=== PATIENT | female | born 1965 | race Caucasian/White ===

== ENCOUNTER 2018-04-07 15:45 | Observation (INO) | payer BC, MEDICAID, SELFPAY ==
[2018-04-07] VITALS (8 sets, daily range): BP systolic 127–147; BP diastolic 61–93; PULSE 78–106; RESP 16–109; TEMP 37–37.3; O2SAT 97–99; BMI 31.8; BMI 32.8
--- NOTE | 2018-04-07 15:53 | EKG12_ITS ---
Test Reason : CP Blood Pressure : / mmHG Vent. Rate : 094 BPM Atrial Rate : 094 BPM P-R Int : 128 ms QRS Dur : 084 ms QT Int : 350 ms P-R-T Axes : 016 038 018 degrees QTc Int : 437 ms Normal sinus rhythm Nonspecific ST abnormality Abnormal ECG Confirmed by BEN HAMILTON, BANDAR ([id number]), manager editorial GARY BALBUENA ([id number] on 04/10/2018 1:27:33 PM Referred By: MARY CARMEN Confirmed By:BANDAR CONTRERAS MD
--- NOTE | 2018-04-07 15:53 | RAD_ITS ---
STUDY: X-RAY CHEST REASON FOR EXAM: Female, 52 years old. Chest pain with exertion TECHNIQUE: Single AP portable view of the chest. COMPARISON: 2010 FINDINGS: EKG leads overlie the chest The lungs are clear and expanded. There is no demonstrated pleural abnormality. Normal size heart. Normal mediastinum and debbie. Normal visualized pulmonary arteries. Normal visualized aortic arch and descending thoracic aorta. Normal visualized thoracic spine. Normal visualized ribs, clavicles, and shoulders. There is no demonstrated abnormality of the visualized soft tissue structures of the upper abdomen. RAD/Chest 1 View (Portable) IMPRESSION: Normal x-ray examination of the chest. Electronically Signed: Santhosh Monae MD at 16:25 EDT , Service support ,
[2018-04-07] MEDS: Aspirin 81 MG TAB.CHEW 324 MG PO (15:59)
[2018-04-07 16:18] LABS: Absolute Lymphocyte Count 1.81 X10^3/ul (0.83-4.51); Absolute Neutrophil Count 8.1 X10^3/uL (2.0-7.7); Basophil# 0.07 X10^3/uL; Basophil% 0.6 % (0-1); Eosinophil# 0.17 X10^3/uL; Eosinophils% 1.5 % (0-5); Hematocrit 39.8 % (37-47); Hemoglobin 13.6 g/dl (12.0-15.0); Lymphocyte # 1.81 X10^3/ul (4.0); Lymphocyte % 16.2 % (19-41); Mean Corp Hgb Conc 34.2 g/gl (32-36); Mean Corpuscular Hgb 30.1 pg (27.0-32.0); Mean Corpuscular Volume 88.1 fL (81-99); Mean Platelet Vol. 10.7 fl (6.2-12.0); Monocyte# 1.02 X10^3/uL; Monocyte% 9.1 % (0-10); Neutrophil # 8.09 X10^3/uL (2.7-7.7); Neutrophil % 72.4 % (47-70); Platelet Count 330 K/mm3 (150-450); RBC Distribution Width CV 13.7 % (11.6-14.6); RBC Distribution Width SD 43.7 fl (35.1-43.9); Red Blood Count 4.52 M/mm3 (4.2-5.4); White Blood Count 11.2 K/mm3 (4.4-11.0)
[2018-04-07 16:20] LABS: POSITIVE COUNT NO; POSITIVE DIFFERENTIAL NO; POSITIVE MORPHOLOGY NO
--- NOTE | 2018-04-07 16:20 | ED.DCSUM_ITS ---
- ER Visit Summary Date of Service: 04/07/18 Chief Complaint: Intermittent central to left parasternal indigestion with radiation to the neck, associated with dyspnea and diaphoresis. History of Present Illness: The patient is a 52 F who presents because of indigestion that at times radiates to the anterior neck. At times to both shoulders and at times to either the right or left shoulder. This occurs predominantly at night. She states she has had trouble sleeping last 1-2 months. She does become sweaty and is nauseous. She also reports dyspnea at times. She has no history of reflux, hiatal hernia, gastritis, peptic ulcer disease. Patient reports recently she has been exercising to lose weight. She does not have any symptoms per se with stress/activity. She denies any leg pain, swelling or discoloration. She denies history of PE or DVT or any risk factors. She denies symptoms of claudication. Strong family history for coronary disease at a young age. She denies hematemesis, melena hematochezia. She has not noted any relationship to when she eats or what she eats. She has not noted any relationship to change in position. Physical Examination: Patient pleasant middle-aged woman who appears in no distress. She is drinking water as I entered the room. Head is atraumatic normocephalic. Pupils are equal round reactive. Extraocular muscles are intact. TMs are pearly white with landmarks noted. Nares patent with no drainage. Posterior pharynx without erythema or exudate. Uvula is midline. There is no dysphonia or dysphasia. Trachea is midline. There is no stridor with auscultation of the neck. Heart is regular without murmur, gallop or rub. S1 and S2 are normal. Lungs are clear to auscultation with good movement of air bilaterally. There is no reproducible chest pain. Abdomen is soft and nontender. There is no guarding or peritoneal findings. There is no palpable pulsatile mass. There is no abdominal bruit. Jacobo sign is negative. Negative Rovsing sign. There is no evidence of inguinal or umbilical hernia. There is no asymmetry, swelling, discoloration, leg vein distention, palpable cords or tenderness along the distribution of the deep venous system. Neuro exam is nonfocal. Test Results: EKG revealed a sinus rhythm with a rate of [address]-T wave changes. The no ossific ST-T wave changes were noted January 30, 2011. White count is slightly low at 11.2. Electro panels unremarkable. Troponin is less than 0.015 and TSH is 1.18. Portable chest x-ray reveals a normal cardiac silhouette and the mediastinum. Lung parenchyma is normal. Osseous structures are unremarkable. There is no evidence of hiatal hernia. Emergency Department Course and Treatment: To evaluate patient's symptoms and concerns and EKG, chest x-ray and appropriate blood work was obtained. She reports history of hyperthyroidism. And since she is tachycardic a TSH was obtained for screening purposes. Treatment Plan: Parts of patient's description of pain is concerning. She does have multiple risk factors. Patient's heart score is 5. Moderate risk with a 1216 0.6% 4 major adverse cardiac events. Therefore the hospitalist was paged for further testing Disposition: 23 hour observation Impression: 1. Midsternal chest discomfort 2. History of hypertension 3. History hypercholesterolemia 4. History of hypothyroidism 5. Significant family history for coronary disease This note was generated with [employer] dictation software. It may contain incorrect words, spelling, and punctuation that were not noted in review of the chart prior to signing ED Disposition - Plan for ED Patient: Chief Complaint: Chest Pain Referrals: River Myers MD [Primary Care Provider] -
[2018-04-07 16:39] LABS: Anion Gap 8 (5-15); BUN 10 mg/dL (7-18); BUN/Creat Ratio 10.4 RATIO (10-20); Calcium,Total 9.1 mg/dL (8.5-10.1); Chloride 106 mmol/L (98-107); Creatinine, Serum 0.96 mg/dL (0.55-1.02); EST Glomerular Filtration Rate 65 mL/min (>60); Est Glom Filt Rate - Afr Amer 78 mL/min (>60); Estimated Creatinine Clearance 57.35 ml/min; Glucose 102 mg/dL (74-106); Potassium 3.5 mmol/L (3.5-5.1); Sodium Level 141 mmol/L (136-145); Thyroid Stim Hormone (TSH) 1.18 uIU/mL (0.358-3.74)
--- NOTE | 2018-04-07 18:38 | PCM.HP.STD ---
Problem List (1) Chest pain Status: Acute History of Present Illness Date of Admission: 04/07/18 Chief Complaint: chest and neck pain. The patient is a 52 year old F presents with chest and neck pain. Patient has had chest pain for decades that is, going to the patient, related with her indigestion. That is normal pain that she today, however, patient experienced some fullness in her neck. Patient was concerned about her thyroid acting up and contacted her primary care doctor who directed her to the emergency room. Emergency room patient's workup was unremarkable. Patient did have a thyroid cyst study with TSH which was normal. Patient be admitted for further chest pain evaluation. 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 Denies: Edema Respiratory: Denies: Cough, Shortness of breath at rest, Sputum production Gastrointestinal: Reports: - - indigestion and belching and flatus. Denies: Abdominal Pain, Nausea, Vomiting Genitourinary: Denies: Dysuria Musculoskeletal: Denies: Joint Pain, Joint Tenderness Skin: Denies: Rash, Wounds Neurological: Denies: Numbness, Tingling, Focal weakness Psychiatric: Reports: Anxiety. Denies: Depression Hematologic/ Lymphatic: Denies: Easy Bruising, Easy Bleeding, Hx of blood clot Comment: All review of systems are negative except as mentioned in the history of present illness and the other review of systems. VTE Information - Inpt Only VTE Present on Admission: No VTE Mechan Device Prophylaxis: None VTE Pharm Prophylaxis ordered?: Yes Patient Problems: Active and Suspected Problems Chest pain (Acute) - Physical Exam General: Alert, Cooperative, No apparent distress HEENT: Atraumatic, Normocephalic Oral: Moist Mucosa, No Gingival or Mucosal Lesions/ Ulcerations Neck: No Nodes, Thyroid Normal Size and Texture Lungs: Clear to auscultation, Normal air movement, No rhonchi, No wheeze Cardiovascular: Regular rate, Regular Rhythm, Normal S1, Normal S2, No murmurs Abdomen: Bowel Sounds Present, Soft, Non Tender, Non-Distended, No Hepato-splenomegaly Extremities: No edema, No Calf Tenderness Skin: No rashes, No breakdown Psych/Mental Status: Normal Affect, Appropriate Vital Signs Temp Pulse Resp BP Pulse Ox 37.3 C 90 18 135/93 H 98 04/07/18 15:48 04/07/18 17:06 04/07/18 17:06 04/07/18 17:06 04/07/18 17:06 Oxygen Delivery Method Room Air Weight: 81.647 kg Body Mass Index (BMI) 31.8 Laboratory Tests Past 24 Hrs 04/07/18 04/07/18 16:00 16:00 WBC 11.2 H RBC 4.52 Hgb 13.6 Hct 39.8 MCV 88.1 MCH 30.1 MCHC 34.2 RDW 13.7 RDW Differential 43.7 Plt Count 330 MPV 10.7 Immature Gran % (Auto) 0.200 Neut % (Auto) 72.4 H Lymph % (Auto) 16.2 L [place] % (Auto) 9.1 Eos % (Auto) 1.5 Baso % (Auto) 0.6 Absolute Neuts (auto) 8.1 H Absolute Lymphs (auto) 1.81 Total Counted Not Reportable Sodium 141 Potassium 3.5 Chloride 106 Carbon Dioxide 27.0 Anion Gap 8 BUN 10 Creatinine 0.96 Estim Creat Clear Calc 57.35 Est GFR (MDRD) Af Amer 78 Est GFR (MDRD) Non-Af 65 BUN/Creatinine Ratio 10.4 Glucose 102 Calcium 9.1 Troponin I < 0.015 TSH 1.18 EKG reviewed and did not show any acute changes. Assessment/Plan All Active Problems Chest pain (Acute) 1. Chest pain Chest pain is actually a chronic process but what brought patient to the emergency room was his neck pain which seems unrelated to the chest pain. Patient has chronic chest pain that she attributes to indigestion. Patient has a calculated heart score of 3 for just risk factors. Patient's symptoms are not suspicious. She received aspirin in the in the emergency room and will continue Patient prefers to do a treadmill stress test despite having plantar fasciitis. Patient feels confident that she will be able to go long enough to mount a proper heart rate with treadmill 2. DVT prophylaxis with Lovenox Code Visit OBSV E&M: 12030 Initial observation care L2
--- NOTE | 2018-04-07 18:45 | HP.PCM_ITS ---
Problem List (1) Chest pain Status: Acute History of Present Illness Date of Admission: 04/07/18 Chief Complaint: chest and neck pain. The patient is a 52 year old F presents with chest and neck pain. Patient has had chest pain for decades that is, going to the patient, related with her indigestion. That is normal pain that she today, however, patient experienced some fullness in her neck. Patient was concerned about her thyroid acting up and contacted her primary care doctor who directed her to the emergency room. Emergency room patient's workup was unremarkable. Patient did have a thyroid cyst study with TSH which was normal. Patient be admitted for further chest pain evaluation. 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 Denies: Edema Respiratory: Denies: Cough, Shortness of breath at rest, Sputum production Gastrointestinal: Reports: - - indigestion and belching and flatus. Denies: Abdominal Pain, Nausea, Vomiting Genitourinary: Denies: Dysuria Musculoskeletal: Denies: Joint Pain, Joint Tenderness Skin: Denies: Rash, Wounds Neurological: Denies: Numbness, Tingling, Focal weakness Psychiatric: Reports: Anxiety. Denies: Depression Hematologic/ Lymphatic: Denies: Easy Bruising, Easy Bleeding, Hx of blood clot Comment: All review of systems are negative except as mentioned in the history of present illness and the other review of systems. VTE Information - Inpt Only VTE Present on Admission: No VTE Mechan Device Prophylaxis: None VTE Pharm Prophylaxis ordered?: Yes Patient Problems: Active and Suspected Problems Chest pain (Acute) - Physical Exam General: Alert, Cooperative, No apparent distress HEENT: Atraumatic, Normocephalic Oral: Moist Mucosa, No Gingival or Mucosal Lesions/ Ulcerations Neck: No Nodes, Thyroid Normal Size and Texture Lungs: Clear to auscultation, Normal air movement, No rhonchi, No wheeze Cardiovascular: Regular rate, Regular Rhythm, Normal S1, Normal S2, No murmurs Abdomen: Bowel Sounds Present, Soft, Non Tender, Non-Distended, No Hepato- splenomegaly Extremities: No edema, No Calf Tenderness Skin: No rashes, No breakdown Psych/Mental Status: Normal Affect, Appropriate Vital Signs Temp Pulse Resp BP Pulse Ox 37.3 C 90 18 135/93 H 98 04/07/18 15:48 04/07/18 17:06 04/07/18 17:06 04/07/18 17:06 04/07/18 17:06 Oxygen Delivery Method Room Air Weight: 81.647 kg Body Mass Index (BMI) 31.8 Laboratory Tests Past 24 Hrs 04/07/18 04/07/18 16:00 16:00 WBC 11.2 H RBC 4.52 Hgb 13.6 Hct 39.8 MCV 88.1 MCH 30.1 MCHC 34.2 RDW 13.7 RDW Differential 43.7 Plt Count 330 MPV 10.7 Immature Gran % (Auto) 0.200 Neut % (Auto) 72.4 H Lymph % (Auto) 16.2 L [place] % (Auto) 9.1 Eos % (Auto) 1.5 Baso % (Auto) 0.6 Absolute Neuts (auto) 8.1 H Absolute Lymphs (auto) 1.81 Total Counted Not Reportable Sodium 141 Potassium 3.5 Chloride 106 Carbon Dioxide 27.0 Anion Gap 8 BUN 10 Creatinine 0.96 Estim Creat Clear Calc 57.35 Est GFR (MDRD) Af Amer 78 Est GFR (MDRD) Non-Af 65 BUN/Creatinine Ratio 10.4 Glucose 102 Calcium 9.1 Troponin I < 0.015 TSH 1.18 EKG reviewed and did not show any acute changes. Assessment/Plan All Active Problems Chest pain (Acute) 1. Chest pain * Chest pain is actually a chronic process but what brought patient to the emergency room was his neck pain which seems unrelated to the chest pain. Patient has chronic chest pain that she attributes to indigestion. * Patient has a calculated heart score of 3 for just risk factors. Patient's symptoms are not suspicious. * She received aspirin in the in the emergency room and will continue * Patient prefers to do a treadmill stress test despite having plantar fasciitis. Patient feels confident that she will be able to go long enough to mount a proper heart rate with treadmill 2. DVT prophylaxis with Lovenox Code Visit OBSV E&M: 10821 Initial observation care L2
--- NOTE | 2018-04-07 19:31 | NURSING ---
1900 called er charge to accept patient
--- NOTE | 2018-04-07 20:49 | EKG12_ITS ---
Test Reason : CP REPEAT Blood Pressure : / mmHG Vent. Rate : 087 BPM Atrial Rate : 087 BPM P-R Int : 124 ms QRS Dur : 086 ms QT Int : 370 ms P-R-T Axes : 025 047 026 degrees QTc Int : 445 ms Normal sinus rhythm Normal ECG When compared with ECG of 07-APR-2018 15:51, MANUAL COMPARISON REQUIRED, DATA IS UNCONFIRMED Confirmed by BEN HAMILTON, BANDAR ([id number]), medical editor GARY BALBUENA ([id number]) on 04/10/2018 1:53:18 PM Referred By: PAULETTE Confirmed By:BANDAR CONTRERAS MD
[2018-04-07] MEDS: Zolpidem Tartrate 5 MG Tablet PO (21:42)
[2018-04-07] MEDS: Famotidine 20 MG Tablet PO (21:42)
[2018-04-08] VITALS (7 sets, daily range): BP systolic 122–124; BP diastolic 77–80; PULSE 66–89; RESP 16–18; TEMP 36.8–37.1; O2SAT 96–98
[2018-04-08 04:37] LABS: Cholesterol 252 mg/dL (200); High Density Lipoprotein 44 mg/dL; Triglycerides 227 mg/dL; Very Low Density Lipoprotein 45 mg/dL (5-40)
[2018-04-08] MEDS: Aspirin E.C. 81 MG Tablet PO (05:53)
[2018-04-08] MEDS: Lisinopril 5 MG Tablet PO (05:53)
[2018-04-08] MEDS: Mag Hydrox/Al Hydrox/Simeth 30 ML UDC PO (05:54)
--- NOTE | 2018-04-08 05:55 | EKG12_ITS ---
Test Reason : AM EKG Blood Pressure : / mmHG Vent. Rate : 074 BPM Atrial Rate : 074 BPM P-R Int : 124 ms QRS Dur : 086 ms QT Int : 376 ms P-R-T Axes : 031 037 025 degrees QTc Int : 417 ms Normal sinus rhythm Normal ECG When compared with ECG of 07-APR-2018 19:52, MANUAL COMPARISON REQUIRED, DATA IS UNCONFIRMED Confirmed by BEN HAMILTON, BANDAR ([id number]), features editor GARY BALBUENA ([id number]) on 04/10/2018 1:52:16 PM Referred By: PAULETTE Confirmed By:BANDAR CONTRERAS MD
--- NOTE | 2018-04-08 05:55 | STE_ITS ---
Reason For Study: Chest Pain Stress Results Protocol: Barrett Protocol Maximum Predicted HR: 169 bpm Target HR: 144 bpm% Max imum Predicted HR: 98 % DurationHeart Rate Stage (mm:ss) (bpm) BPCom ment Baseline 105 138/9 03/10 Gassy Pain Under Ribs Barrett Protocol Stage I 3:00 15 0 164/883/10 Gassy Chest Pain Barrett Protocol Stage II 2:00 16 6 170/843/10 Gassy Chest Pain Recovery 116 130/9 43/10 Gassy Chest Pain Stress Duration: 5:00 mm:ss Maximum Stress HR: 166 bpmM ETS: 7 Baseline Echocardiogram Findings The estimated ejection fraction is 65 %. Stress Echo Wall motion Data Resting WMIntermediate WMStress WM Resting Wall Motion Wall Motion Stress No regional wall motion No regional wall motion abnormalities noted. abnormalities noted. EKG Data Normal intervals are noted. The patient exercised according to the regular Barrett protocol for a total duration of 5:00. The maximum heart rate attained was 166 beats per minute. This was 98% of maximum predicted heart rate. The patient exercised into stage 2 of the Barrett protocol. During stress, there were no ST or T wave changes noted to suggest ischemia. No arrhythmias noted. Interpretation Summary The estimated ejection fraction is 65 %. Normal, adequate, treadmill echocardiogram. Negative for ischemia by EKG and echocardiographic criteria. Patient had baseline 3 out of 10 chest pain upon arrival which did not worsen during exercise or into recovery. No arrhythmias noted. Appropriate blood pressure response to exercise. Below average exercise capacity for age. Final LVEF is 75%. No complications. Ordering Physician: Rosas Tyson Referring Physician: Reinaldo Terry MD Performed By: Aura Clark RDCS
[2018-04-08 06:05] LABS: Absolute Lymphocyte Count 2.82 X10^3/ul (0.83-4.51); Absolute Neutrophil Count 4.6 X10^3/uL (2.0-7.7); Basophil# 0.04 X10^3/uL; Basophil% 0.5 % (0-1); Eosinophil# 0.26 X10^3/uL; Hematocrit 38.9 % (37-47); Hemoglobin 13.1 g/dl (12.0-15.0); International Normalized Ratio 1.1; Lymphocyte # 2.82 X10^3/ul (4.0); Lymphocyte % 32.4 % (19-41); Mean Corp Hgb Conc 33.7 g/gl (32-36); Mean Corpuscular Hgb 29.9 pg (27.0-32.0); Mean Corpuscular Volume 88.8 fL (81-99); Mean Platelet Vol. 11.1 fl (6.2-12.0); Monocyte# 0.96 X10^3/uL; Neutrophil # 4.61 X10^3/uL (2.7-7.7); Platelet Count 307 K/mm3 (150-450); Prothrombin Time (Protime)PT. 13.9 SECONDS (11.7-14.9); RBC Distribution Width CV 13.7 % (11.6-14.6); RBC Distribution Width SD 44.9 fl (35.1-43.9); Red Blood Count 4.38 M/mm3 (4.2-5.4); White Blood Count 8.7 K/mm3 (4.4-11.0)
[2018-04-08 06:07] LABS: Partial Thromboplast Time 32.3 Seconds (24.1-36.2)
[2018-04-08 06:13] LABS: POSITIVE COUNT NO; POSITIVE DIFFERENTIAL NO; POSITIVE MORPHOLOGY NO
[2018-04-08 06:17] LABS: Anion Gap 10 (5-15); BUN 9 mg/dL (7-18); BUN/Creat Ratio 12.8 RATIO (10-20); Calcium,Total 9.5 mg/dL (8.5-10.1); Chloride 109 mmol/L (98-107); EST Glomerular Filtration Rate 93 mL/min (>60); Est Glom Filt Rate - Afr Amer 112 mL/min (>60); Estimated Creatinine Clearance 78.65 ml/min; Glucose 90 mg/dL (74-106); Potassium 3.5 mmol/L (3.5-5.1); Sodium Level 145 mmol/L (136-145)
[2018-04-08] MEDS: Pantoprazole Sodium 20 MG Tablet PO (09:29)
[2018-04-08] MEDS: Famotidine 20 MG Tablet PO (09:29)
--- NOTE | 2018-04-08 10:51 | PCM.DC ---
- Discharge Diagnoses Current Active Problems: Current Active and Chronic Problems (Last Updated 04/07/18 @ 18:40 by Rosas Tyson DO) Chest pain (Acute) You will use the following diet at home:: Cardiac Your food should be the consistency of: Regular Your liquids should be the consistency of: Regular/Thin Discharge Activity: Return to Normal Activity Allergies/Adverse Reactions: Allergies No Known Allergies Allergy (Verified 04/07/18 15:57) Medications to take at Discharge Lisinopril [Zestril] 5 mg PO DAILY 04/07/18 Ranitidine [Zantac] 150 mg PO BID 04/07/18 [place] Jelly 500 mg PO DAILY 04/07/18 Aspirin E.C. [Ecotrin] 81 mg PO DAILY@0800 tablet 04/08/18 [place]-3 Fatty Acids/Fish Oil [Fish Oil 1,000 mg Capsule] 1 ea PO BID #60 cap 04/08/18 Pantoprazole Sodium [Protonix] 40 mg PO BID #60 tab 04/08/18 The following prescriptions were given: [place]-3 Fatty Acids/Fish Oil [Fish Oil 1,000 mg Capsule] 1 ea PO BID #60 cap Pantoprazole Sodium [Protonix] 40 mg PO BID #60 tab Primary Care Physician: River Myers MD [Primary Care Provider] - Please follow up with your Primary Care Physician in: 2 weeks Test Results: Test results from this visit will be discussed in further detail at your follow-up appointment, if applicable. Please Follow Up With: Kt Nuno MD - GI, need new EGD When: 2 weeks Proposed Discharge Date: 04/08/18
--- NOTE | 2018-04-08 12:43 | PCM.DC.SUM ---
Discharge Date and Diagnosis Date of Admission: 04/07/18 Date of Discharge: 04/08/18 - Primary Discharge Diagnosis Chest pain - cardiac etiology ruled out, felt to be 2/2 GERD HTN HLD statin intolerant Hospital Course and Treatment Imaging Results: Stress echo: Interpretation Summary The estimated ejection fraction is 65 %. Normal, adequate, treadmill echocardiogram. Negative for ischemia by EKG and echocardiographic criteria. Patient had baseline 3 out of 10 chest pain upon arrival which did not worsen during exercise or into recovery. No arrhythmias noted. Appropriate blood pressure response to exercise. Below average exercise capacity for age. Final LVEF is 75%. No complications. RAD/Chest 1 View (Portable) IMPRESSION: Normal x-ray examination of the chest. Operations: None Procedures: Stress test Summary of Care Provided: Physical exam on day of discharge: General: Resting comfortably NAD Psych: A/Ox3 normal affect HEENT: PEARRLA AT NC Neck: Supple NT, thyroid palpated no nodules appreciated, no swelling, symmetric and soft bilaterally. CV: RRR no m/t/r/g/h Resp: CTA Abd: [id number] Soft NT no guarding or rigidity Ext: DP2+= no edema Skin: W/D normal turgor Lymph/Heme: No active bleeding or adenopathy Neuro: CN2-12 intact Hospital course: The patient is a 52 year old F with a hx of htn, hld, GERD, who presented to the ER with chief complaint of chest pain, neck pain and fullness, feeling similar to her GERD, with associated anxiety and pounding heart. She was sent from her PCP. EKG, troponin, cxr were negative. She underwent a stress test the following day, had enzymes cycled, maintained on tele. Testing was negative for cardiac etiology. She reported she was highly concerned that her GERD was getting worse and that her home medications were not controlling it well anymore. She did think that the protonix here worked better than her home omeprazole. She also complained that she thought her thyroid might be off - checked TSH (normal) and palpated thyroid (no abdnormalities palpated). We felt her symptoms were likely 2/2 GERD or other undlerlying gastric issues. As her symptoms have been persistent, uncontrolled, and she has not had an endoscopy in at least 10 years we advised her to follow up with Dr. Rooney and have a repeat endoscopy. Until then she was given an rx for protonix bid. She also had poorly controlled cholesterol while here. She unfortunately has had severe muscle cramps with many different statins and is unwilling to try another statin at this time. Her LDL was 163, total chol 252, and trigs 227. She was given an rx for fish oil. She remained in stable condition and was discharged home. Please follow up with your PCP and with GI 2 weeks. This patient was seen by Jackson Marshall PA-C under the supervision of Doctor Farshad. [] Discharge Diet: Low fat/ Low Cholesterol, 2000 mg Sodium Diet Discharge Activity: Return to Normal Activity Home Medications: Medications to take at Discharge Lisinopril [Zestril] 5 mg PO DAILY 04/07/18 Ranitidine [Zantac] 150 mg PO BID 04/07/18 [place] Jelly 500 mg PO DAILY 04/07/18 Aspirin E.C. [Ecotrin] 81 mg PO DAILY@0800 tablet 04/08/18 [place]-3 Fatty Acids/Fish Oil [Fish Oil 1,000 mg Capsule] 1 ea PO BID #60 cap 04/08/18 Pantoprazole Sodium [Protonix] 40 mg PO BID #60 tab 04/08/18 Following Prescrptions Were Given to Patient: [place]-3 Fatty Acids/Fish Oil [Fish Oil 1,000 mg Capsule] 1 ea PO BID #60 cap Pantoprazole Sodium [Protonix] 40 mg PO BID #60 tab Primary Care Physician: River Myers MD [Primary Care Provider] - Please follow up with your Primary Care Physician in: 2 weeks Please Follow Up With: Kt Nuno MD - GI, need new EGD When: 2 weeks Disposition: Home Minutes spent on discharge:: 35 Patient Condition:: Stable Medical Necessity - Tobacco Use Smoking Status: Never smoker Tobacco Use: Non-smoker Meaningful Use Info Meaningful Use Diagnoses (Choose all that apply): None applicable
--- NOTE | 2018-04-08 12:51 | DS.PCM_ITS ---
Discharge Date and Diagnosis Date of Admission: 04/07/18 Date of Discharge: 04/08/18 - Primary Discharge Diagnosis Chest pain - cardiac etiology ruled out, felt to be 2/2 GERD HTN HLD statin intolerant Hospital Course and Treatment Imaging Results: Stress echo: Interpretation Summary The estimated ejection fraction is 65 %. Normal, adequate, treadmill echocardiogram. Negative for ischemia by EKG and echocardiographic criteria. Patient had baseline 3 out of 10 chest pain upon arrival which did not worsen during exercise or into recovery. No arrhythmias noted. Appropriate blood pressure response to exercise. Below average exercise capacity for age. Final LVEF is 75%. No complications. RAD/Chest 1 View (Portable) IMPRESSION: Normal x-ray examination of the chest. Operations: None Procedures: Stress test Summary of Care Provided: Physical exam on day of discharge: General: Resting comfortably NAD Psych: A/Ox3 normal affect HEENT: [place] AT NC Neck: Supple NT, thyroid palpated no nodules appreciated, no swelling, symmetric and soft bilaterally. CV: RRR no m/t/r/g/h Resp: CTA Abd: [id number] Soft NT no guarding or rigidity Ext: DP2+= no edema Skin: W/D normal turgor Lymph/Heme: No active bleeding or adenopathy Neuro: CN2-12 intact Hospital course: The patient is a 52 year old F with a hx of htn, hld, GERD, who presented to the ER with chief complaint of chest pain, neck pain and fullness, feeling similar to her GERD, with associated anxiety and pounding heart. She was sent from her PCP. EKG, troponin, cxr were negative. She underwent a stress test the following day, had enzymes cycled, maintained on tele. Testing was negative for cardiac etiology. She reported she was highly concerned that her GERD was getting worse and that her home medications were not controlling it well anymore. She did think that the protonix here worked better than her home omeprazole. She also complained that she thought her thyroid might be off - checked TSH (normal) and palpated thyroid (no abdnormalities palpated). We felt her symptoms were likely 2/2 GERD or other undlerlying gastric issues. As her symptoms have been persistent, uncontrolled, and she has not had an endoscopy in at least 10 years we advised her to follow up with Dr. Rooney and have a repeat endoscopy. Until then she was given an rx for protonix bid. She also had poorly controlled cholesterol while here. She unfortunately has had severe muscle cramps with many different statins and is unwilling to try another statin at this time. Her LDL was 163, total chol 252, and trigs 227. She was given an rx for fish oil. She remained in stable condition and was discharged home. Please follow up with your PCP and with GI 2 weeks. This patient was seen by Jackson Marshall PA-C under the supervision of Doctor Farshad. [] Discharge Diet: Low fat/ Low Cholesterol, 2000 mg Sodium Diet Discharge Activity: Return to Normal Activity Home Medications: Medications to take at Discharge Lisinopril [Zestril] 5 mg PO DAILY 04/07/18 Ranitidine [Zantac] 150 mg PO BID 04/07/18 [place] Jelly 500 mg PO DAILY 04/07/18 Aspirin E.C. [Ecotrin] 81 mg PO DAILY@0800 tablet 04/08/18 [place]-3 Fatty Acids/Fish Oil [Fish Oil 1,000 mg Capsule] 1 ea PO BID #60 cap Pantoprazole Sodium [Protonix] 40 mg PO BID #60 tab 04/08/18 Following Prescrptions Were Given to Patient: [place]-3 Fatty Acids/Fish Oil [Fish Oil 1,000 mg Capsule] 1 ea PO BID #60 cap Pantoprazole Sodium [Protonix] 40 mg PO BID #60 tab Primary Care Physician: River Myers MD [Primary Care Provider] - Please follow up with your Primary Care Physician in: 2 weeks Please Follow Up With: Kt Nuno MD - GI, need new EGD When: 2 weeks Disposition: Home Minutes spent on discharge:: 35 Patient Condition:: Stable Medical Necessity - Tobacco Use Smoking Status: Never smoker Tobacco Use: Non-smoker Meaningful Use Info Meaningful Use Diagnoses (Choose all that apply): None applicable
== END 2018-04-08 10:52 | disposition home or self-care (01) ==
LOC: ED 16:23 → PCU 18:39
PROVIDERS: Emergency Provider Emergency Medicine; Family Provider Family Medicine; PCP Family Medicine; Visit Provider Family Medicine
DX: R07.89 Other chest pain (principal); K21.9 Gastro-esophageal reflux disease without esophagitis; I10 Essential (primary) hypertension; E78.5 Hyperlipidemia, unspecified; E66.9 Obesity, unspecified; Z68.32 Body mass index [BMI] 32.0-32.9, adult; Z71.3 Dietary counseling and surveillance; F41.9 Anxiety disorder, unspecified; M54.2 Cervicalgia; K30 Functional dyspepsia; M72.2 Plantar fascial fibromatosis; Z79.899 Other long term (current) drug therapy; Z87.891 Personal history of nicotine dependence
CPT/HCPCS: 36415; 71045; 80048; 80061; 84443; 84484; 85025; 85610; 85730; 93005; 93017; 93350; 94660; 99218; 99283; A4216; G0378

== ENCOUNTER 2021-07-05 12:46 | Emergency (ER) | payer MEDICAID, SELFPAY ==
[2021-07-05 12:46] VITALS: BP 127/82; PULSE 110; RESP 20; TEMP 37.6; O2SAT 94; BMI 34.9
[2021-07-05 13:04] VITALS: BP 130/87; PULSE 99; RESP 18; TEMP 37.6; O2SAT 94
--- NOTE | 2021-07-05 13:14 | EDS_ITS ---
HPI HPI - URI History of Present Illness Chief Complaint: Shortness of Breath Informant: patient Onset/Context/Timing Onset: Days Context: Gradual Onset Timing: Continuous Current Severity: Mild Maximum Severity: Mild Associated Symptoms Associated Symptoms: Positive for Nasal Congestion, Myalgias, Shortness of Breath and Nonproductive cough Narrative Narrative: 55-year-old female history of fibromyalgia, mitral valve prolapse and hypertension. States that she was diagnosed with Covid and has had symptoms now for 10 days. She was treated in urgent care and started on 2 different antibiotics cefdinir and Zithromax to be treated for pneumonia also. She is on no steroid. States she does not feel like she is getting any better and potentially worse. She denies any vomiting. No diarrhea. Prior similar symptoms: Yes Recent Illness/Hospitalization: No ROS ROS ED ROS Narrative Cough and shortness of breath. Constitutional Constitutional ED: Reports fever(s) Eyes Eyes: Denies change in vision ENT ENT ED: Denies ear pain or sore throat Cardiovascular Cardiovascular: Denies chest pain Respiratory/Chest Respiratory/Chest: Reports cough and dyspnea Gastrointestinal Gastrointestinal: Denies abdominal pain, diarrhea, nausea or vomiting Genitourinary Genitourinary ED: Denies dysuria Musculoskeletal Musculoskeletal: Denies myalgias Integumentary Denies rash Neurologic Neurologic: Denies headache(s) Psychiatric Psychiatric: Denies depression Endocrine Endocrinology: Denies polyuria Hematologic/Lymphatic Hematologic/Lymphatic: Denies easy bruising Allergic/Immunologic Allergic/Immunologic ED: Denies urticaria [facility] Medical History Anxiety HTN (hypertension) Indigestion Home Medications Ranitidine [Zantac] 150 mg PO BID 04/07/18 [History Last Taken 04/06/18] lisinopril 5 mg PO DAILY 04/07/18 [History Last Taken 04/06/18] royal jelly 500 mg PO DAILY 04/07/18 [History Last Taken 04/06/18] aspirin 81 mg PO DAILY@0800 tablet 04/08/18 [Rx Last Taken Unknown] omega-3 fatty acids-fish oil 1 ea PO BID #60 cap 04/08/18 [Rx Last Taken Unknown] pantoprazole 40 mg PO BID #60 tab 04/08/18 [Rx Last Taken Unknown] dexamethasone [Decadron] 6 mg PO DAILY 7 Days #7 tab 07/05/21 [Rx Last Taken Unknown] Allergy/AdvReac Type Severity Reaction Status Date / Time No Known Allergies Allergy Verified 04/07/18 15:57 Family History Other Heart disease Social History Smoking Status: Never smoker EXAM Physical Exam Narrative Exam Narrative: White female no acute distress. Vital signs stable. Blood pressure 127/82. Heart rate 110. Pulse ox 94% on room air no hypoxia. Temperature nine 9.7. She does not look septic or toxic. She does not look particularly ill. She does not look dehydrated. HEENT exam normal. Moist remembers. Neck nontender no lymphadenopathy. No meningismus. Lungs clear to auscultation bilaterally. Heart regular rhythm rate about 100 no murmur. Abdomen soft nontender normal bowel sounds no peritoneal signs. Moving all 4 extremities. Nontender no edema. Neurologically she is awake and alert. No focal motor deficits. Const Vital Signs: 07/05/21 12:46 07/05/21 13:04 07/05/21 14:38 Temperature 99.7 F H 99.7 F H 97.0 F L Temperature Source Oral Oral Temporal Pulse Rate 110 H 99 94 Respiratory Rate 20 H 18 14 Respiratory Effort Short of Breath Respiratory Pattern Tachypnea Blood Pressure 127/82 H 130/87 H 123/84 H Blood Pressure Mean 97 101 97 Pulse Ox 94 94 93 Oxygen Delivery Method Room Air Room Air Room Air 07/05/21 15:22 Temperature 97.0 F L Temperature Source Temporal Pulse Rate 96 Respiratory Rate 16 Respiratory Effort Respiratory Pattern Blood Pressure 128/83 H Blood Pressure Mean 98 Pulse Ox 92 Oxygen Delivery Method Room Air Positive well nourished and well developed; Negative for cachectic or contractures General Appearance ED: well developed and NAD; Negative for cachectic, contractures, cyanotic or diaphoretic Nutritional Appearance: Negative for cachectic HEENT Reports moist mucous membranes normocephalic and atraumatic External Ear: external ears normal External Auditory Canal: EAC's normal Tympanic Membrane ED: Yes TM's normal bilaterally Eyes PERRL and EOMs intact bilaterally Neck no lymphadenopathy, no meningeal signs and no JVD General: Negative for anterior neck swelling Resp normal respiratory effort and clear to auscultation bilaterally Auscultation: Negative for rales, rhonchi or wheezes Cardio S1 normal heart sound, S2 normal heart sound and no murmurs Rate: regular rate Rhythm: regular rhythm GI non-tender, non-distended and no masses Inspection: Negative for abdominal distention Auscultation: normoactive bowel sounds Palpation: soft; Negative for tender or guarding Back/Spine no CVA tenderness and normal ROM General Back: Negative for CVA tenderness Cervical Spine: Negative for cervical spine tenderness Extremity normal to inspection and full ROM General Extremety ED: Negative for cyanosis or tenderness General Extremity: Negative for cyanosis Neuro oriented x3 Sensorium / Orientation: alert, oriented to person, oriented to place and oriented to time Motor Exam: strength 5/5 throughout Psych mental status grossly normal Skin Lesions: no lesions Rashes: no rashes MDM MDM MDM Narrative Medical decision making narrative: Female no acute distress. 10-day history of Covid with a positive test 5 to 6 days ago. She feels like she is getting worse clinically she looks well. A chest x-ray will be obtained. Otherwise her vital signs are stable. She is outside the window for monoclonal antibody therapy. Repeat exam patient is doing well at 3:30 PM. She and I went over her chest x- ray. She will be started on Decadron. Radiography Diagnostic Testing: Clinical Impression(s) from Imaging Studies Chest X-Ray 07/05/21 13:20 IMPRESSION: Patchy bilateral pulmonary infiltrates in the preferential peripheral distribution suggestive of Covid pneumonitis. Electronically Signed: Aguilar Pelaez MD at 13:37 EDT , Service support , Chest x-ray single view portable interpreted by myself and the radiologist shows bilateral patchy infiltrates consistent with Covid pneumonitis. Discharge Plan Triage Chief Complaint: Shortness of Breath ED Provider: Claude Gates Dx/Rx/DC Orders Clinical Impression: COVID-19 Instructions: Human Coronaviruses Prescriptions: New dexamethasone [Decadron] 6 mg tablet 6 mg PO DAILY 7 Days Qty: 7 RF: 0 No Action lisinopril 5 MG tablet 5 mg PO DAILY RF: 0 royal jelly 500 MG capsule 500 mg PO DAILY RF: 0 Ranitidine [Zantac] 150 MG tablet 150 mg PO BID RF: 0 aspirin 81 MG tablet 81 mg PO DAILY@0800 RF: 0 pantoprazole 40 MG tablet 40 mg PO BID Qty: 60 RF: 0 omega-3 fatty acids-fish oil 1 EACH capsule 1 ea PO BID Qty: 60 RF: 0 Primary Care Provider: River Myers Referrals: River Myers MD [Primary Care Provider] - 1 Week if not improving Activity Restrictions/Additional Instructions: Decadron daily. This is a steroid medication that will help with inflammation in your lungs. Plenty of fluids and rest. Follow-up with your doctor if not improving. Return emergency department if feeling a lot worse. Disposition Disposition: Home, Self Care
--- NOTE | 2021-07-05 13:15 | EX.ED.VIS.UR ---
HPI HPI - URI History of Present Illness Chief Complaint: Shortness of Breath PFSH PFSH Medical History Anxiety HTN (hypertension) Indigestion Home Medications Ranitidine [Zantac] 150 mg PO BID 04/07/18 [History Last Taken 04/06/18] lisinopril 5 mg PO DAILY 04/07/18 [History Last Taken 04/06/18] royal jelly 500 mg PO DAILY 04/07/18 [History Last Taken 04/06/18] aspirin 81 mg PO DAILY@0800 tablet 04/08/18 [Rx Last Taken Unknown] omega-3 fatty acids-fish oil 1 ea PO BID #60 cap 04/08/18 [Rx Last Taken Unknown] pantoprazole 40 mg PO BID #60 tab 04/08/18 [Rx Last Taken Unknown] Allergy/AdvReac Type Severity Reaction Status Date / Time No Known Allergies Allergy Verified 04/07/18 15:57 Family History (Updated 04/07/18 @ 18:[address] Rosas Tyson, DO) Other Heart disease Social History Smoking Status: Never smoker EXAM Physical Exam Const Vital Signs: 07/05/21 12:46 07/05/21 13:04 Temperature 99.7 F H 99.7 F H Temperature Source Oral Oral Pulse Rate 110 H 99 Respiratory Rate 20 H 18 Respiratory Effort Short of Breath Respiratory Pattern Tachypnea Blood Pressure 127/82 H 130/87 H Blood Pressure Mean 97 101 Pulse Ox 94 94 Oxygen Delivery Method Room Air Room Air Discharge Plan Triage Chief Complaint: Shortness of Breath ED Provider: Claude Gates Dx/Rx/DC Orders Prescriptions: No Action lisinopril 5 MG tablet 5 mg PO DAILY RF: 0 royal jelly 500 MG capsule 500 mg PO DAILY RF: 0 Ranitidine [Zantac] 150 MG tablet 150 mg PO BID RF: 0 aspirin 81 MG tablet 81 mg PO DAILY@0800 RF: 0 pantoprazole 40 MG tablet 40 mg PO BID Qty: 60 RF: 0 omega-3 fatty acids-fish oil 1 EACH capsule 1 ea PO BID Qty: 60 RF: 0 Primary Care Provider: River Myers
--- NOTE | 2021-07-05 13:20 | RAD_ITS ---
STUDY: X-RAY CHEST REASON FOR EXAM: Female, 55 years old. covid TECHNIQUE: Single AP portable view of the chest. COMPARISON: Comparison is made with prior study dated 04/07/2018. FINDINGS: EKG electrodes are seen. Patchy bilateral pulmonary infiltrates in the preferential peripheral distribution. This is suggestive of a Covid pneumonitis. There is no demonstrated pleural abnormality. Normal size heart. Normal mediastinum and debbie. Normal visualized pulmonary arteries. Normal visualized aortic arch and descending thoracic aorta. There are diffuse degenerative changes of the visualized thoracic spine. Normal visualized ribs, clavicles, and shoulders. There is no demonstrated abnormality of the visualized soft tissue structures of the upper abdomen. RAD/Chest 1 View (Portable) IMPRESSION: Patchy bilateral pulmonary infiltrates in the preferential peripheral distribution suggestive of Covid pneumonitis. Electronically Signed: Aguilar Pelaez MD at 13:37 EDT , Service support ,
[2021-07-05 14:38] VITALS: BP 123/84; PULSE 94; RESP 14; TEMP 36.1; O2SAT 93
[2021-07-05 15:22] VITALS: BP 128/83; PULSE 96; RESP 16; TEMP 36.1; O2SAT 92
[2021-07-05] MEDS: dexAMETHasone 4 MG Tablet 6 MG PO (15:43)
[2021-07-05] MEDS: Acetaminophen 325 MG Tablet 650 MG PO (15:43)
== END 2021-07-05 15:52 | disposition home or self-care (01) ==
PROVIDERS: Emergency Provider Emergency Medicine; PCP Family Medicine
DX: U07.1 COVID-19 (principal); I10 Essential (primary) hypertension; I34.1 Nonrheumatic mitral (valve) prolapse; M79.7 Fibromyalgia; Z79.82 Long term (current) use of aspirin; Z79.899 Other long term (current) drug therapy
CPT/HCPCS: 71045; 99283

== ENCOUNTER → 2021-07-26 | Outpatient (CLI) | payer MEDICAID, SELFPAY ==
[2021-07-26 13:11] LABS: D-Dimer Quantitative (DVT/PE) 0.43 FEU/ug/m (0.27-0.49)
== END | disposition home or self-care (01) ==
LOC: LABSPEC 12:54
PROVIDERS: PCP Family Medicine; Visit Provider Family Medicine
DX: U07.1 COVID-19 (principal); R07.9 Chest pain, unspecified; R06.02 Shortness of breath
CPT/HCPCS: 85379

== ENCOUNTER 2022-06-24 20:18 | Emergency (ER) | payer MEDICAID, SELFPAY ==
[2022-06-24 20:19] VITALS: BP 134/87; PULSE 125; RESP 20; TEMP 36.3; O2SAT 98; BMI 35.2
--- NOTE | 2022-06-24 20:59 | EDS_ITS ---
HPI History of Present Illness Chief Complaint: Abscess Detail of Chief Complaint: Chin abscess Informant: patient Onset/Context/Timing Onset: Days Context: Gradual Onset Timing: Continuous Current Severity: Mild Maximum Severity: Mild Narrative Narrative: 56-year-old female no seen past medical history. States since last she has had redness that initially was on her chin and her left cheek. Was seen in urgent care on Friday started on Keflex 4 times a day and the cheek is gotten much better the chin is still swollen and red and there is a pocket of pus. She denies any fever or chills. No prior history. She denies being diabetic. Prior similar symptoms: No Recent Illness/Hospitalization: No [facility] Medical History Anxiety HTN (hypertension) Indigestion Home Medications lisinopril 5 mg tablet 10 mg PO DAILY blood pressure 04/07/18 [History Last Taken 04/06/18] royal jelly 500 mg capsule 500 mg PO DAILY supplement 04/07/18 [History Last Taken 04/06/18] aspirin 81 mg tablet,delayed release 81 mg PO DAILY@0800 04/08/18 [Rx Last Taken Unknown] pantoprazole 40 mg tablet,delayed release 40 mg PO BID #60 tabs 04/08/18 [Rx Last Taken Unknown] Flonase 2 spray NASAL DAILY 06/24/22 [History Last Taken Unknown] Zyrtec 10 mg PO/SL DAILY 06/24/22 [History Last Taken Unknown] albuterol sulfate 90 mcg/actuation aerosol inhaler 2 puff inhalation Q4H PRN PRN Wheezing 06/24/22 [History Last Taken Unknown] atorvastatin 40 mg tablet 40 mg PO QHS 06/24/22 [History Last Taken Unknown] cephalexin 500 mg capsule 500 mg PO 4XD 06/24/22 [History Last Taken Unknown] cephalexin 500 mg capsule 500 mg PO Q6 7 days #28 caps 06/24/22 [Rx Last Taken Unknown] cholecalciferol (vitamin D3) 4 cap PO/SL DAILY 06/24/22 [History Last Taken Unknown] cimetidine 200 mg PO/SL 4XD 06/24/22 [History Last Taken Unknown] cyclobenzaprine 10 mg tablet 10 mg PO TID PRN Muscle Spasm 06/24/22 [History Last Taken Unknown] hydroxyzine pamoate 25 mg PO/SL TID PRN Anxiety 06/24/22 [History Last Taken Unknown] mupirocin 2 % topical ointment 1 applic topical TID 06/24/22 [History Last Taken Unknown] omega-3 fatty acids-fish oil 340 mg-1,000 mg capsule 1 each PO DAILY 06/24/22 [History Last Taken Unknown] sulfamethoxazole 800 mg-trimethoprim 160 mg tablet (Bactrim DS) 1 tab PO DAILY 7 days #14 tabs 06/24/22 [Rx Last Taken Unknown] Allergy/AdvReac Type Severity Reaction Status Date / Time No Known Allergies Allergy Verified 06/24/22 20:19 Family History Other Heart disease Social History Smoking Status: Never smoker ROS ROS ED ROS Narrative Denies any recent illness. Review of Systems ROS Unobtainable: Denies due to encephalopathy Constitutional Constitutional ED: Denies chills Eyes Eyes: Denies blurry vision ENT ENT ED: Denies ear pain Cardiovascular Cardiovascular: Denies chest pain Respiratory/Chest Respiratory/Chest: Denies cough Gastrointestinal Gastrointestinal: Denies abdominal pain Genitourinary Genitourinary ED: Denies dysuria Musculoskeletal Musculoskeletal: Denies arthralgias Integumentary Reports abscess Neurologic Neurologic: Denies headache(s) Psychiatric Psychiatric: Denies anxiety Endocrine Endocrinology: Denies cold intolerance Hematologic/Lymphatic Hematologic/Lymphatic: Reports none Allergic/Immunologic Allergic/Immunologic ED: Denies mouth swelling or tongue swelling EXAM Physical Exam Narrative Exam Narrative: 36-year-old female no acute distress. Vital signs stable afebrile. She has cellulitis and abscess on her left side of her chin. There is no lymphadenopathy. No trouble opening close her mouth. Tender to the area. Otherwise heart lung abdominal respiratory exam is normal. Const Vital Signs: 06/24/22 20:19 Temperature 97.3 F L Temperature Source Temporal Pulse Rate 125 H Respiratory Rate 20 H Blood Pressure 134/87 H Blood Pressure Mean 102 Pulse Ox 98 Oxygen Delivery Method Room Air Positive well nourished and well developed; Negative for cachectic, contractures or unkempt General Appearance ED: well developed and NAD; Negative for unkempt, cachectic, contractures, cyanotic, diaphoretic or pallor Nutritional Appearance: Negative for cachectic HEENT Reports moist mucous membranes Negative for trauma Eyes PERRL and EOMs intact bilaterally General Eye ED: Negative for pale conjunctiva or scleral icterus Neck no lymphadenopathy, supple and no JVD General: Negative for tenderness Lymph Lymphatic: Negative for other Chest Wall inspection of chest normal and palpation of chest normal Chest: Negative for other Resp normal respiratory effort and clear to auscultation bilaterally Effort and Inspection: Negative for retractions Auscultation: Negative for rales, rhonchi or wheezes Cardio regular rate, regular rhythm, S1 normal heart sound, S2 normal heart sound and no murmurs Palpation: Negative for palpable S3 Rate: Negative for bradycardia Rhythm: Negative for abnormal rhythm GI normal to inspection, nondistended, normoactive bowel sounds, non-tender, non- distended and no masses Inspection: Negative for abdominal distention Auscultation: normoactive bowel sounds Palpation: soft; Negative for tender Back/Spine no CVA tenderness General Back: Negative for CVA tenderness Cervical Spine: Negative for cervical spine tenderness Thoracic Spine / Upper Back: Negative for thoracic spinal tenderness Lumbar Spine / Lower Back: Negative for lumbar spinal tenderness Extremity normal to inspection General Extremety ED: Negative for edema or tenderness General Extremity: Negative for edema Neuro oriented x3 Sensorium / Orientation: alert; Negative for orientation impaired, lethargic or stuporous Sensory Exam: No sensory level loss detected Motor Exam: strength 5/5 throughout Psych mental status grossly normal Appearance: Negative for unkempt Attitude: No agitated Mood & Affect: anxious; Negative for depressed or tearful Skin No no rashes or lesions noted and no wounds Skin Narrative: Chin has cellulitis and an abscess. General Skin Exam: Negative for jaundice or pallor Lesions: No lesion noted Rashes: rashes noted Trauma: Negative for abrasion Wounds: wounds noted MDM MDM MDM Narrative Medical decision making narrative: 56-year-old female has cellulitis and abscess on her chin. Is improving with oral antibiotics she has been given but I think this needs to be drained. Let will be applied. I will make a small incision with a scalpel. I was able to I&D the chin abscess. Expressed about 3+ cc of pus. She will be placed on Bactrim and Keflex for 7 more days. She is already been on 4 days of Keflex. Warm compresses. Return if worse. Procedures Other Procedures Procedure(s): Chin abscess. Let applied. I made a small centimeter incision left anterior aspect of her chin. Was able to express about 3+ cc of pus and blood. Patient tolerated procedure well. She did not want me to make a larger incision or do lidocaine injection due to the discomfort to her face and for aesthetic reasons. Discharge Plan Triage Chief Complaint: Abscess ED Provider: Claude Gates Dx/Rx/DC Orders Clinical Impression: Abscess of chin Instructions: ED Abscess Incision And Drainage Prescriptions: New cephalexin 500 mg capsule 500 mg PO Q6 7 Days Qty: 28 0RF sulfamethoxazole-trimethoprim [Bactrim DS] 800-160 mg tablet 1 tab PO DAILY 7 Days Qty: 14 0RF No Action lisinopril 5 MG tablet 10 mg PO DAILY royal jelly 500 MG capsule 500 mg PO DAILY aspirin 81 MG tablet 81 mg PO DAILY@0800 0RF pantoprazole 40 MG tablet 40 mg PO BID Qty: 60 0RF cephalexin 500 mg capsule 500 mg PO 4XD Label Comments: TAKE 1 CAPSULE BY MOUTH 4 TIMES DAILY FOR 7 DAYS cyclobenzaprine 10 mg tablet 10 mg PO TID PRN (Reason: Muscle Spasm) Label Comments: TAKE 1 TABLET BY MOUTH THREE TIMES DAILY NEEDED atorvastatin 40 mg tablet 40 mg PO QHS Label Comments: TAKE 1 TABLET BY MOUTH ONCE DAILY AT BEDTIME FOR CHOLESTEROL mupirocin 2 % ointment 1 applic TOPICAL TID Label Comments: APPLY OINTMENT TOPICALLY TO AFFECTED AREA THREE TIMES DAILY FOR 10 DAYS albuterol sulfate 90 mcg/actuation HFA aerosol inhaler 2 puff INHALATION Q4H PRN PRN (Reason: Wheezing) Label Comments: INHALE 2 PUFFS BY MOUTH EVERY 4 HOURS NEEDED FOR WHEEZING OR SHORTNESS OF BREATH Flonase 2 spray NASAL DAILY Zyrtec 10 mg PO/SL DAILY cholecalciferol (vitamin D3) 4 cap PO/SL DAILY cimetidine 200 mg PO/SL 4XD hydroxyzine pamoate 25 mg PO/SL TID PRN (Reason: Anxiety) omega-3 fatty acids-fish oil 1 EACH capsule 1 each PO DAILY Primary Care Provider: Nikolay Hampton Referrals: River Myers MD [Non-Staff] - Nikolay Hampton MD [Primary Care Provider] - 3-5 Days if not improving Activity Restrictions/Additional Instructions: Warm compresses to the chin to help with continue to drain. Motrin and Tylenol for pain. This should progressively start improving if not needs to be reevaluated. Keflex 1 pill 4 times a day for 7 more days after your current prescription is ended. Bactrim 1 pill twice a day which you can start tomorrow. Disposition Disposition: Home, Self Care
[2022-06-24] MEDS: Lidocaine/Epi/Tetracaine 50 ML 1 APPLIC TOPICAL (21:08)
== END 2022-06-24 23:02 | disposition home or self-care (01) ==
PROVIDERS: Emergency Provider Emergency Medicine; PCP Family Medicine; Visit Provider Emergency Medicine
DX: L02.01 Cutaneous abscess of face (principal); L03.211 Cellulitis of face; I10 Essential (primary) hypertension; Z79.899 Other long term (current) drug therapy; Z79.82 Long term (current) use of aspirin; F41.9 Anxiety disorder, unspecified
CPT/HCPCS: 10060; 99282

== ENCOUNTER → 2024-03-18 | Outpatient (CLI) | payer MEDICAID, SELFPAY ==
[2024-03-18 17:19] LABS: Absolute Lymphocyte Count 2.44 X10^3/uL (0.83-4.51); Absolute Neutrophil Count 7.9 X10^3/uL (2.0-7.7); Basophil# 0.13 X10^3/uL; Basophil% 1.1 % (0-1); Eosinophil# 0.12 X10^3/uL; Hematocrit 43.8 % (37-47); Hemoglobin 14.6 g/dL (12.0-15.0); Lymphocyte # 2.44 X10^3/ul (0.83-4.51); Lymphocyte % 20.6 % (19-41); Mean Corp Hgb Conc 33.3 g/dL (32-36); Mean Corpuscular Hgb 29.5 pg (27.0-32.0); Mean Corpuscular Volume 88.5 fL (81-99); Mean Platelet Vol. 10.9 fl (6.2-12.0); Monocyte# 1.21 X10^3/uL; Monocyte% 10.2 % (0-10); NRBC Flagged by Analyzer 0 % (0-5); Neutrophil # 7.91 X10^3/uL (2.7-7.7); Neutrophil % 66.7 % (47-70); Platelet Count 416 K/mm3 (150-450); RBC Distribution Width CV 13.9 % (11.6-14.6); RBC Distribution Width SD 44.9 fl (35.1-43.9); Red Blood Count 4.95 M/mm3 (4.2-5.4); White Blood Count 11.9 K/mm3 (4.4-11.0)
[2024-03-18 17:56] LABS: Hemoglobin A1c 5.6 % (3.8-5.6)
[2024-03-18 17:59] LABS: Vitamin B12 640 pg/mL (211-911); Vitamin D,25 Hydroxy 37.8 ng/mL
[2024-03-18 18:11] LABS: ALB/GLOB Ratio 0.9 RATIO (0.9-2.4); AST(SGOT) 20 U/L (15-37); Alanine Aminotransfer ALT/SGPT 32 U/L (13-56); Alkaline Phosphatase 108 U/L (45-117); Anion Gap 11 (5-15); BUN 13 mg/dL (7-18); BUN/Creat Ratio 16.8 RATIO (10-20); Calcium,Total 9.9 mg/dL (8.5-10.1); Chloride 102 mmol/L (98-107); Cholesterol 228 mg/dL (200); Creatinine, Serum 0.77 mg/dL (0.55-1.02); EST Glomerular Filtration Rate 81 mL/min (>60); Est Glom Filt Rate - Afr Amer 99 mL/min (>60); Free T3 3.4 pg/mL (2.18-3.98); Globulin 4.3 g/dL (2.2-4.2); Glucose 133 mg/dL (74-106); High Density Lipoprotein 52 mg/dL; Potassium 3.4 mmol/L (3.5-5.1); Protein, Total 8.3 g/dL (6.4-8.2); Sodium Level 138 mmol/L (136-145); T4 Free Direct 1.33 ng/dL (0.76-1.46); Thyroid Stim Hormone (TSH) 0.86 uIU/mL (0.358-3.74); Triglycerides 235 mg/dL; Very Low Density Lipoprotein 47 mg/dL (5-40)
== END | disposition home or self-care (01) ==
LOC: VSLAB 16:32
PROVIDERS: PCP Family Medicine; Visit Provider Nurse Practitioner Family
DX: R00.2 Palpitations (principal); E56.9 Vitamin deficiency, unspecified; E66.9 Obesity, unspecified; E78.5 Hyperlipidemia, unspecified
CPT/HCPCS: 36415; 80053; 80061; 82306; 82607; 83036; 83735; 84439; 84443; 84481; 85025

== ENCOUNTER → 2024-04-13 | Outpatient (CLI) | payer MEDICAID, SELFPAY ==
[2024-04-13 17:20] LABS: Anion Gap 8 (5-15); BUN 10 mg/dL (7-18); BUN/Creat Ratio 15.6 RATIO (10-20); Calcium,Total 9.9 mg/dL (8.5-10.1); Chloride 104 mmol/L (98-107); Creatinine, Serum 0.64 mg/dL (0.55-1.02); EST Glomerular Filtration Rate 101 mL/min (>60); Est Glom Filt Rate - Afr Amer 123 mL/min (>60); Glucose 101 mg/dL (74-106); Potassium 3.8 mmol/L (3.5-5.1); Sodium Level 138 mmol/L (136-145)
== END | disposition home or self-care (01) ==
LOC: VSLAB 14:18
PROVIDERS: PCP Nurse Practitioner Family; Visit Provider Nurse Practitioner Family
DX: R00.2 Palpitations (principal); E56.9 Vitamin deficiency, unspecified; E78.5 Hyperlipidemia, unspecified; E66.9 Obesity, unspecified
CPT/HCPCS: 36415; 80048

== ENCOUNTER → 2024-04-30 | Outpatient (CLI) | payer MEDICAID, SELFPAY | END | disposition home or self-care (01) | LOC: PSN 11:47 | PROVIDERS: PCP Nurse Practitioner Family; Referring Provider Nurse Practitioner Family; Visit Provider Nurse Practitioner Family | DX: R00.2 Palpitations (principal) | CPT/HCPCS: 93225; 93226 ==